=== PATIENT | female | born 1980 | race Two or more races ===

== ENCOUNTER 2019-11-12 09:54 | Day surgery (SDC) | payer OTHER ==
[2019-11-12] MEDS ORDERED: Tylenol #3 PO (14:09)
[2019-11-12] MEDS ORDERED: MORGIDOX100 MG PO (14:09)
== END 2019-11-12 16:57 | disposition home or self-care (01) ==
LOC: CIR.AMB 09:54
PROVIDERS: ATTEND Obstetrics & Gynecology
DX: O02.1 Missed abortion (principal)

== ENCOUNTER → 2020-08-11 | Day surgery (SDC) | payer OTHER ==
[~2020-08-11] MED LIST: MORGIDOX100 MG PO; NAPR500T14 PO; Tylenol #3 PO
== END | disposition home or self-care (01) ==
LOC: ADM 08-08 12:00 → CIR.AMB 07:00
PROVIDERS: ATTEND Obstetrics & Gynecology
DX: O02.1 Missed abortion (principal); Z20.822 Contact with and (suspected) exposure to COVID-19

== ENCOUNTER 2021-03-16 05:37 | Day surgery (SDC) | payer OTHER ==
[2021-03-16] MEDS ORDERED: MORGIDOX100 MG PO (10:58)
[2021-03-16] MEDS ORDERED: NAPR500T14 PO (10:58)
== END 2021-03-16 14:10 | disposition home or self-care (01) ==
LOC: CIR.AMB 05:37
PROVIDERS: ATTEND Obstetrics & Gynecology
DX: D25.0 Submucous leiomyoma of uterus (principal); N84.0 Polyp of corpus uteri; Z20.822 Contact with and (suspected) exposure to COVID-19

== ENCOUNTER 2022-11-02 11:40 | Emergency (ER) | payer OTHER ==
[~2022-11-02] VITALS: Ht 157.5 cm; Wt 68.9 kg
== END 2022-11-02 17:43 | disposition home or self-care (01) ==
LOC: ER 11:40
PROVIDERS: General Practice
DX: O26.859 Spotting complicating pregnancy, unspecified trimester (principal); O36.80X0 Pregnancy with inconclusive fetal viability, not applicable or unspecified; Z3A.09 9 weeks gestation of pregnancy

== ENCOUNTER 2024-05-29 08:45 | Outpatient (CLI) | payer OTHER | END 2024-05-29 08:51 | disposition home or self-care (01) | LOC: PRENATAL 08:45 | PROVIDERS: ATTEND Obstetrics & Gynecology Maternal & Fetal Medicine | DX: O36.80X0 Pregnancy with inconclusive fetal viability, not applicable or unspecified (principal); O26.20 Pregnancy care for patient with recurrent pregnancy loss, unspecified trimester; O09.529 Supervision of elderly multigravida, unspecified trimester; O26.859 Spotting complicating pregnancy, unspecified trimester; Z3A.01 Less than 8 weeks gestation of pregnancy ==

== ENCOUNTER → 2024-06-19 | Day surgery (SDC) | payer OTHER ==
[~2024-06-19] VITALS: Ht 157.5 cm; Wt 69.9 kg
[~2024-06-19] MED LIST changes: +CEFAZOLIN SODIUM 1,000 MG VIAL ONE; +POVIDONE-IODINE 118 ML BOTT TOP ONE
[2024-06-19 11:55] LABS: HEMOGLOBIN 13.5 g/dL (12.0-15.00); MEAN CELL VOLUME 88.7 fL (80.00-100.00); MEAN CORPUSCULAR HEMOGLOBIN 29.9 pg (27.00-32.0); MEAN CORPUSCULAR HGB CONC 33.7 g/dl (32.0-36.0); PLATELET COUNT 214 K/uL (150-450); RED BLOOD COUNT 4.51 M/uL (4.00-6.00); RED CELL DISTRIBUTION WIDTH 14.3 % (11.5-14.5)
[2024-06-19 12:19] LABS: URINE APPEARANCE Clear; URINE BILIRRUBIN Negative (NEGATIVE); URINE BLOOD Trace; URINE COLOR Yellow; URINE GLUCOSE Negative (NEGATIVE); URINE KETONE Negative (NEGATIVE); URINE LEUKOCYTE Negative; URINE NITRATE Negative; URINE PROTEIN Negative (NEGATIVE)
[2024-06-19 12:20] LABS: URINE BACTERIA 859.1 uL (0.0-1933); URINE EPITHELIAL CELLS 12.8 uL (0.0-38.8); URINE RBC 14.8 uL (0.0-20.8); URINE WBC 13.7 uL (0.0-23.2)
[2024-06-19 18:04] LABS: PROTHROMBIN TIME 10.9 SECONDS (9.0-11.5)
[2024-06-19 21:36] VITALS: BP 110/62; O2SAT 100
== END | disposition home or self-care (01) ==
LOC: ER 10:20 → CIR.AMB 10:23 → ER 10:23 → CIR.AMB 10:23 → O/R 16:16 → ER 16:16 → EDSTATUS 18:00 → O/R 20:30
PROVIDERS: Obstetrics & Gynecology; ATTEND Emergency Medicine
DX: O02.1 Missed abortion (principal); Z88.8 Allergy status to other drugs, medicaments and biological substances